=== PATIENT | male | born 1960 | race Caucasian/White ===

== ENCOUNTER → 2019-03-23 | Outpatient (CLI) | payer BC ==
[2019-03-27 11:59] LABS: Lyme IgG/IgM 0.19 Index
== END | disposition home or self-care (01) ==
LOC: LABWHC1 16:57
PROVIDERS: ATTEND Family Medicine
DX: R61 Generalized hyperhidrosis (principal); Z11.8 Encounter for screening for other infectious and parasitic diseases; W57.XXXA Bitten or stung by nonvenomous insect and other nonvenomous arthropods, initial encounter
CPT/HCPCS: 36415; 86618